=== PATIENT | female | born 1950 ===

== ENCOUNTER 2018-04-04 08:13 | Day surgery (SDC) | payer MEDICARE ==
[2018-04-01 11:55] VITALS: BMI 21.4
--- NOTE | 2018-04-03 14:43 | HP ---
HISTORY AND PHYSICAL DATE OF SERVICE: 04/04/2018 Radha Summers is a 68-year-old patient seen with progressive right knee pain. Treatment options were discussed with her. She elected to proceed with right knee arthroscopy. Consent regarding the procedure was obtained. PAST MEDICAL HISTORY: Hyperlipidemia and depression. PAST SURGICAL HISTORY: Appendectomy, section. DAILY MEDICATIONS: Pravastatin. ALLERGIES: PENICILLIN. SOCIAL HISTORY: Patient denies current tobacco use. PHYSICAL EVALUATION OF THE RIGHT KNEE: Range of motion is -3 to 100 degrees. There is a mild effusion present. There is tenderness along the medial joint line with positive medial Louise's. Ligaments are stable. Hip rotation without pain. Distal neurovascular exam intact. RADIOGRAPHS OF THE RIGHT KNEE: Revealed moderate medial and patellofemoral compartment osteoarthritis. An MRI of the right knee revealed a medial meniscal tear, lateral meniscal tear, osteoarthritis and joint effusion. IMPRESSION: 1. Internal derangement, right knee with medial lateral meniscal tears. 2. Right knee osteoarthritis. 3. Hyperlipidemia. PLAN: Right knee arthroscopy with partial meniscectomy and debridement. MMODL / IJN: [id number] /
[~2018-04-04 08:13] MED LIST: DEXAMETHASONE SOD PHOSPHATE 10 MG/ML 1 ML VIAL IV ONE; HYDROmorphone 0.5 MG/0.5 ML SYRINGE IVP PRN; LACTATED RINGERS 1,000 ML IV SCH; ceFAZolin 1,000 MG in DEXTROSE/WATER 1 50ML.BAG IVPB ONE
[2018-04-04] MEDS ORDERED: LIDOCAINE 1% 20 ML VIAL (10MG/ML) FOR IV START INTRADERMA ONE (09:01)
[2018-04-04] MEDS: ONDANSETRON 4 MG/2 ML VIAL IVP ONE ×2 (09:02→10:25)
[2018-04-04] MEDS ORDERED: LIDOCAINE 1% INJ 10MG/ML (20 ML MDV) ONE (09:04)
[2018-04-04] MEDS ORDERED: fentaNYL (PF) 50 MCG/ML 2 ML AMP ONE (09:04)
[2018-04-04] MEDS ORDERED: ePHEDrine SULFATE/0.9% NACL/PF 50 MG/5 ML SYRINGE IV ONE (09:04)
[2018-04-04] MEDS ORDERED: PROPOFOL 10 MG/ML 20 ML VIAL IV ONE (09:04)
[2018-04-04] MEDS ORDERED: MIDAZOLAM 2 MG/2 ML VIAL ONE (09:04)
[2018-04-04] MEDS ORDERED: SUCCINYLCHOLINE CHLORIDE 100 MG/5 ML SYR IV ONE (09:04)
[2018-04-04] MEDS ORDERED: KETOROLAC 30 MG/ML 1 ML VIAL ONE (09:04)
[2018-04-04] MEDS ORDERED: BUPIVACAINE (PF) 0.25% 30 ML VIAL INTRAARTIC ONE (09:25)
[2018-04-04 10:11] VITALS: TEMP 97.2
--- NOTE | 2018-04-04 10:14 | P.OP ---
Date of Procedure: 04/04/18 Preoperative Diagnosis: Internal derangement right knee Postoperative Diagnosis: 1. Tear medial and lateral meniscus right knee 2. Grade 2/3 chondromalacia medial femoral condyle right knee 3. Grade 3 chondromalacia patella right knee 4. Grade 1 chondromalacia lateral femoral condyle right knee 5. Reactive synovitis medial, lateral and suprapatellar compartments right knee 6. Partial ACL tear right knee Procedure(s) Performed: 1. Arthroscopic partial medial and lateral meniscectomy 2. Arthroscopic chondroplasty medial femoral condyle right knee 3. Arthroscopic chondroplasty lateral femoral condyle right knee 4. Arthroscopic chondroplasty patella right knee 5. Arthroscopic partial synovectomy medial, lateral and suprapatellar compartments right knee 6. Arthroscopic debridement partial ACL tear right knee Implants: None Anesthesia: IRENEA, local Surgeon: Salomon Eric Estimated Blood Loss (ml): 5 Pathology: none sent Condition: stable Disposition: PACU Indications for Procedure: 68-year-old patient seen with progressive right knee pain. After we had treatment options discussed, she elected to proceed with arthroscopy. Operative Findings: see description of procedure Description of Procedure: Patient was taken to the operative suite. Patient underwent a general anesthetic by the department of anesthesia. Patient was given preoperative antibiotics. The right lower extremity was placed in a well-padded arthroscopic leg jackson. The right leg was prepped and draped in the normal sterile orthopedic fashion. A lateral parapatellar and suprapatellar incision was made. Trochars were inserted. Arthroscopy was initiated. Suprapatellar pouch revealed diffuse thick reactive synovitis. The patellofemoral joint appeared to articulate congruently. There was grade 3 chondromalacia with osteochondral tears present. The scope was guided into the medial gutter. No loose bodies or plica were identified. The scope was then guided into the medial compartment. A medial parapatellar incision was made. Trocar inserted followed by probe. There was a radial tear posterior horn medial meniscus. There were grade 2 and 3 chondromalacia changes of the medial femoral condyle with osteochondral tears present. There was reactive synovitis anteriorly. I performed a partial medial meniscectomy down to stable tissue. I performed a chondroplasty of the medial femoral condyle down to stable tissue. I performed a partial synovectomy. I used the Schwarz and nephew where Abbie to complete the chondroplasty of the medial femoral condyle. The residual meniscus and osteochondral surfaces were stable. Scope and probe were then guided into the intercondylar notch. There was partial tearing of the anterior fibers of the anterior cruciate ligament. I introduced a motorized shaver and debrided that. The residual ACL was stable. The residual PCL was stable. The scope and probe were then guided into lateral compartment. There was a radial tear involving the midbody as well as a radial tear posterior horn lateral meniscus. There were grade 1 chondral moist changes of the lateral femoral condyle with small osteochondral tears present. There was some reactive synovitis anteriorly. I performed a partial lateral meniscectomy down to stable tissue. I performed a chondroplasty of the lateral femoral condyle down to stable tissue. I performed a partial synovectomy down to stable tissue. The residual meniscus and osteochondral surface was stable. The scope was in guided back into the suprapatellar compartment. I introduced a motorized shaver into the super patellar compartment. I debrided some piecemeal fragments of meniscus I encountered. I performed a chondroplasty of the patella as well as a partial synovectomy. I introduced the where Abbie and completed the chondroplasty the patella area and the residual osteochondral surface of patella was probed again and found to be stable. I took one more look around the entire knee, no residual debris. Instruments were now removed from the joint. The joint was infiltrated with .25% Marcaine. Steri-Strips were applied to the portal sites. Sterile dressings were applied. The patient was placed into a ROXANE hose. No tourniquet was utilized. The patient was awakened, transferred to a bed and taken to recovery stable satisfactory condition.
[2018-04-04 10:18] VITALS: RESP 16
[2018-04-04 11:28] VITALS: PULSE 79
[2018-04-04] MEDS ORDERED: traMADol 50 MG TAB PO ONE (11:38)
[2018-04-04 11:42] VITALS: BP 136/81
== END 2018-04-04 12:45 | disposition home or self-care (01) ==
LOC: OR 08:13
PROVIDERS: ATTEND Orthopaedic Surgery
DX: M23.321 Other meniscus derangements, posterior horn of medial meniscus, right knee (principal); M23.300 Other meniscus derangements, unspecified lateral meniscus, right knee; S83.511A Sprain of anterior cruciate ligament of right knee, initial encounter; M17.11 Unilateral primary osteoarthritis, right knee; M65.861 Other synovitis and tenosynovitis, right lower leg; E78.5 Hyperlipidemia, unspecified; M22.41 Chondromalacia patellae, right knee; Z88.0 Allergy status to penicillin; F32.9 Major depressive disorder, single episode, unspecified; Z79.82 Long term (current) use of aspirin; Z79.899 Other long term (current) drug therapy
CPT/HCPCS: 29880; J2250; J1100; J2405; J2001; J3010; J1885; J0690; J0330; J2704; J1170